=== PATIENT | male | born 1965 | race Hispanic/Latino ===

== ENCOUNTER 2024-09-06 08:53 | Emergency (ER) | payer BC ==
[~2024-09-06] VITALS: Ht 182.9 cm; Wt 89.8 kg
[~2024-09-06 08:53] MED LIST: DICL50TA9 PO
--- NOTE | 2024-09-06 09:31 | ERN ---
General Chief Complaint: Abdominal Pain Stated Complaint: ABDOMINAL PAIN Time Seen by MD: 09:09 Source: patient History of Present Illness Initial Comments Patient is a 58-year-old male with no past medical history had a colonoscopy approximately five months ago and has had left lower quadrant pain since. When asked where the pain is he points to his left lower quadrant and states that it migrates up around to his left back and down into his left groin. The colonoscopy revealed diverticulosis. He has been treating the pain with dicyclomine tramadol Flagyl and ciprofloxacin but the pain is still there and getting worse. He has no other systemic symptoms aside from the left lower quadrant pain. 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 Nothing makes it better. No change in bowel habits or urination. He is eating well. No upper respiratory tract infections no shortness of breath no chest pain. Allergies: Coded Allergies: No Known Drug Allergies (Unverified Allergy, Unknown, 08/25/21) Home Meds Active Scripts Diclofenac Sodium (Diclofenac Sodium) 50 Mg Tablet.dr, 50 MG PO TIDP PRN for SEVERE PAIN (7-10), #20 TAB 0 Refills Prov:ALIYAH OZUNA MD 08/25/21 Past Medical History Past Medical History: No Pertinent History, Diverticulitis, Diverticulosis Medical History Other: Colonoscopy 04/2024 Past Surgical History: None Social History Social History: Other Constitutional: (-) chills, (-) diaphoresis, (-) fever, (-) malaise, (-) [place] kness, (-) other documentation EENTM: (-) eye pain, (-) blurred vision, (-) tearing, (-) double vision, (-) ear pain, (-) ear discharge, (-) nose pain, (-) nose congestion, (-) throat pain, (-) Throat swelling, (-) mouth pain, (-) tooth pain, (-) mouth swelling, (-) other documentation Respiratory: (-) cough, (-) orthopnea, (-) short of breath, (-) stridor, (-) wheezing, (-) other documentation Cardiovascular: (-) chest pain, (-) edema, (-) palpitations, (-) syncope, (-) dyspnea on exertion, (-) other documentation Gastrointestinal/Abdominal: (-) nausea, (-) vomiting, (-) diarrhea, (-) abdominal pain, (-) abdominal distention, (-) constipation, (-) rectal bleeding, (-) dark stool/melena, (-) other documentation Genitourinary: (-) penile discharge, (-) dysuria, (-) frequency, (-) hematuria, (-) pain, (-) other documentation Musculoskeletal: (-) Neck pain, (-) back pain, (-) Flank Pain, (-) joint pain, (-) joint swelling, (-) muscle pain, (-) muscle stiffness, (-) gout, (-) other documentation Skin: (-) laceration, (-) contusion, (-) abrasion, (-) abscess, (-) rash, (-) change in color, (-) change in hair, (-) change in nails, (-) diaphoresis, (-) dryness, (-) other documentation Neuro: (-) altered mental status, (-) headache, (-) syncope, (-) paralysis, (-) numbness, (-) seizure, (-) pre-existing deficit, (-) tremors, (-) weakness, (-) dizziness, (-) slurred speech, (-) vertigo, (-) other documentation Physical Exam General Appearance: (+) no apparent distress Orientation: (+) oriented x 3 Head/Face Trauma: No Eye: bilateral eye normal inspection, bilateral eye PERRL, bilateral eye EOMI Ear, Nose, Throat: (+) hearing grossly normal, (+) normal ENT inspection, (+) moist mucous membraine Neck: (+) normal inspection, (+) supple Respiratory: (+) chest non-tender, (+) lungs clear, (+) well ventilated Heart: (+) regular, (+) no gallop Vascular: (+) no edema, (+) normal peripheral pulse, (+) no JVD Gastrointestinal: (+) soft, (+) non-tender, (+) bowel sound present Genital: (+) normal exam Genital Comment Because patient's pain seemed to radiate down into his left groin I noted patient also had let groin tenderness. I performed a hernia exam on the left side ask him to cough. I felt a slight push on the tip of my finger at the internal inguinal ring. Patient immediately had excruciating pain that was localized to his left lower quadrant and migrated up to his left flank and down into his groin. I asked him if this was the same pain that he had previously and he said yes I asked him if I had created a new source of pain for him and he said no. Back: (+) normal inspection, (+) no CVA tenderness Extremities: (+) normal range of motion, (+) non-tender Neurologic/Psychiatric: (+) normal speech, (+) no motor defecits, (+) rn behavioral health II- XII nml as tested Results Laboratory and Microbiology Lab and Micro Result Laboratory Tests Test 09/06/24 09:14 09/06/24 11:23 White Blood Count 7.1 K/uL (4.8-10.8) Red Blood Count 4.72 MIL/uL (4.50-6.20) Hemoglobin 14.0 g/dL (14.0-18.0) Hematocrit 41.6 % (42-54) L Mean Corpuscular Volume 88.1 fL (79-99) Mean Corpuscular Hemoglobin 29.7 pg (27.0-33.0) Mean Corpuscular Hemoglobin Concent 33.7 g/dL (32.0-36.0) Red Cell Distribution Width 12.9 % (11.0-15.5) Platelet Count 226 K/uL (130-400) Mean Platelet Volume 12.3 fL (7.5-10.5) H Immature Granulocyte % (Auto) 0.3 % (0-1) Neutrophils (%) (Auto) 59.2 % (40.0-77.0) Lymphocytes (%) (Auto) 27.3 % (21.0-51.0) Monocytes (%) (Auto) 6.8 % (3.0-13.0) Eosinophils (%) (Auto) 5.1 % (0.0-8.0) Basophils (%) (Auto) 1.3 % (0.0-5.0) Neutrophils # (Auto) 4.2 K/uL (1.8-7.7) Lymphocytes # (Auto) 1.9 K/uL (1.0-4.8) Monocytes # (Auto) 0.5 K/uL (0.1-1.0) Eosinophils # (Auto) 0.36 K/uL (0.00-0.70) Basophils # (Auto) 0.09 K/uL (0.00-0.20) Absolute Immature Granulocyte (auto 0.02 K/uL (0-1) Nucleated Red Blood Cells 0.0 % (0.0-0.19) Sodium Level 142 mmol/L (136-145) Potassium Level 4.1 mmol/L (3.5-5.1) Chloride Level 106 mmol/L (101-111) Carbon Dioxide Level 26 mmol/L (21-32) Blood Urea Nitrogen 7 mg/dL (7-18) Creatinine 1.1 mg/dL (0.5-1.3) Glomerular Filtration Rate Calc 78 mL/min (>90) Random Glucose 98 mg/dL (70-105) Total Calcium 8.7 mg/dL (8.5-10.1) Urine Color LIGHT-YELLOW (YELLOW) Urine Appearance CLEAR (CLEAR) Urine pH 6.5 (5.0-8.0) Urine Specific [place] 1.013 (1.001-1.031) Urine Protein NEGATIVE mg/dL (NEGATIVE) Urine Glucose (UA) NEGATIVE mg/dL (NEGATIVE) Urine Ketones NEGATIVE mg/dL (NEGATIVE) Urine Occult Blood MODERATE (NEGATIVE) H Urine Nitrate NEGATIVE (NEGATIVE) Urine Bilirubin NEGATIVE mg/dL (NEGATIVE) Urine Urobilinogen 0.2 mg/dL (0.2-1.0) Urine Leukocyte Esterase NEGATIVE Toy/uL Urine RBC 6-10 /HPF (0-1) H Urine WBC 2-5 /HPF (0-1) H Urine Squamous Epithelial Cells RARE /HPF (0-2) Urine Bacteria RARE /HPF (None Seen) MDM It appears the patient has left inguinal pain in addition to his left lower quadrant pain. A hernia exam exacerbated his symptoms. I will get a CBC and a chemistry panel be sure I am not dealing with a diverticulitis flare. I will a lso check his urine. For now I will give him some pain medications and some fluid. I will also do a CT scan with oral and IV contrast of his abdomen. Patient's CBC is normal patient's chemistry panel is normal surprisingly urine showed blood. With no esterase activity. CT scan showed cystitis, no kidney stones, but cystitis. My physical exam is consistent with epididymitis. I will treat the patient with g of Rocephin and a two week course of doxycycline. ED Course Orders Procedure Category Date Status Time Basic Metabolic Panel LAB 09/06/24 Complete 09:31 Cbc With Differential LAB 09/06/24 Complete 09:31 Urinalysis Profile LAB 09/06/24 Complete 09:31 Ketorolac PHA 09/06/24 Complete Tromethamine 30mg/Ml 10:00 Lactated Ringers PHA 09/06/24 Complete 1000ml (Lactated 09:31 Diatr PHA 09/06/24 Complete Meglu/Diatrizoate 09:49 Iohexol (Omnipaque) PHA 09/06/24 Complete 09:49 Ct Abdomen/Pelvis CT 09/06/24 Resulted W/Wo Contras 09:56 Current Medications Medications (Trade) Dose Ordered Sig/Kranthi Route PRN Reason Start Time Stop Time Status Last Admin Dose Admin Diatrizoate Meglum/ Diatrizoate Sod (Gastrografin 66-10 Solution) 30 ml STK-MED ONCE .ROUTE 09/06/24 09:49 09/06/24 09:50 DC Iohexol (Omnipaque) 75 ml STK-MED ONCE IV 09/06/24 09:49 09/06/24 09:50 DC Ketorolac Tromethamine (toRADol) 30 mg ONCE ONCE IVP 09/06/24 10:00 09/06/24 10:01 DC 09/06/24 09:51 Lactated Ringer's (Lactated Ringers 1000ml) 1,000 ml BOLUS STAT IV 09/06/24 09:31 09/06/24 09:36 DC 09/06/24 09:51 Vital Signs Date Time Temp Pulse Resp B/P (MAP) Pulse Ox O2 Delivery O2 Flow Rate FiO2 09/06/24 12:40 97.9 63 18 148/84 98 Room Air* 0 21 09/06/24 11:40 97.5 56 16 157/95 98 Room Air* 0 21 09/06/24 08:55 98.2 70 16 142/89 99 Room Air* 0 21 09/06/24 08:55 98.2 70 16 142/89 99 Room Air DX & DISP Disposition: Discharge Departure Impression: Primary Impression: Cystitis Additional Impression: Epididymitis with no abscess Condition: Stable Scripts Doxycycline Hyclate (Doxycycline Hyclate) 100 Mg Capsule 1 CAP PO BID for 14 Days, #28 CAP 0 Refills Prov: FREDRICK PENNINGTON MD 09/06/24 Additional Instructions: If your symptoms do not improve after taking your course of antibiotics please see your primary care physician regarding your pain. You may still have an inguinal hernia or a musculoskeletal injury. For now you can treat the pain with Tylenol or Motrin. Referrals: SELF,REFERRAL (PCP) FREDRICK PENNINGTON MD September 06, 2024 09:31
--- NOTE | 2024-09-06 09:39 | NUR ---
PENDING GFR RESULTS, IV SITE, & CONSENT FOR CT EXAM.
[2024-09-06 09:40] LABS: BASOPHILS # (AUTO) 0.09 K/uL (0.00-0.20); BASOPHILS % (AUTO) 1.3 % (0.0-5.0); EOSINOPHILS # (AUTO) 0.36 K/uL (0.00-0.70); EOSINOPHILS % (AUTO) 5.1 % (0.0-8.0); HEMATOCRIT 41.6 % (42-54); IMMATURE GRANULOCYTE ABSOLUTE 0.02 K/uL (0-1); LYMPHOCYTES # (AUTO) 1.9 K/uL (1.0-4.8); LYMPHOCYTES % (AUTO) 27.3 % (21.0-51.0); MEAN CORPUSCULAR HEMOGLOBIN 29.7 pg (27.0-33.0); MEAN CORPUSCULAR HGB CONC 33.7 g/dL (32.0-36.0); MEAN CORPUSCULAR VOLUME 88.1 fL (79-99); MONOCYTES # (AUTO) 0.5 K/uL (0.1-1.0); MONOCYTES % (AUTO) 6.8 % (3.0-13.0); NEUTROPHILS # (AUTO) 4.2 K/uL (1.8-7.7); NEUTROPHILS % (AUTO) 59.2 % (40.0-77.0); PLATELET COUNT (AUTO) 226 K/uL (130-400); RED BLOOD CELL COUNT(AUTO) 4.72 MIL/uL (4.50-6.20); RED CELL DISTRIBUTION WIDTH 12.9 % (11.0-15.5); WHITE BLOOD COUNT (AUTO) 7.1 K/uL (4.8-10.8)
[2024-09-06 09:48] LABS: CREATININE 1.1 mg/dL (0.5-1.3); POTASSIUM 4.1 mmol/L (3.5-5.1)
[2024-09-06] MEDS ORDERED: DIATR MEGLU/DIATRIZOATE SODIUM 30 ML BOTTLE ONE (09:49)
[2024-09-06] MEDS ORDERED: IOHEXOL-350 75 ML VIAL IV ONE (09:49)
[2024-09-06] MEDS: ketOROlac 30MG VIAL (30MG/ML) IVP ONE (09:51)
[2024-09-06] MEDS: LACTATED RINGERS 1000ML IV STA (09:51)
--- NOTE | 2024-09-06 09:51 | NUR ---
PATIENT PREPPING WITH ORAL CONTRAST FOR CT EXAM.
[2024-09-06 11:44] LABS: APPEARANCE,URINE CLEAR (CLEAR); BILIRUBIN,URINE NEGATIVE (NEGATIVE); COLOR,URINE LIGHT-YELLOW (YELLOW); GLUCOSE, URINE (UA) NEGATIVE (NEGATIVE); KETONES,URINE NEGATIVE (NEGATIVE); LEUKOCYTE ESTERASE ,URINE NEGATIVE Leu/uL (NEGATIVE); NITRATE,URINE NEGATIVE (NEGATIVE); OCCULT BLOOD,URINE MODERATE (NEGATIVE); PH,URINE 6.5 (5.0-8.0); PROTEIN,URINE NEGATIVE (NEGATIVE); UROBILINOGEN,URINE 0.2 mg/dL (0.2-1.0)
[2024-09-06 11:46] LABS: ADD UA MICROSCOPIC YES
[2024-09-06 11:50] LABS: BACTERIA,URINE RARE /HPF (None Seen); MUCUS,URINE RARE LPF (None Seen); SQUAMOUS EPITHELIAL CELL,UR RARE /HPF (0-2)
--- NOTE | 2024-09-06 12:12 | HMCIMG ---
CT ABDOMEN WITHOUT AND WITH CONTRAST. CT PELVIS WITHOUT AND WITH CONTRAST INDICATION: Left lower abdominal pain TECHNIQUE: Routine transaxial images at 5 mm slice thickness were obtained prior to the administration of contrast material through the abdomen only, and after the intravenous infusion of 75 mL of Omnipaque 350 through the abdomen and pelvis without adverse effects. Delayed images of the abdomen and pelvis were also obtained. Coronal and sagittal reformatted imaging acquired for interpretation. Oral contrast administered. CT was performed with one or more of the following dose reduction techniques: Automated exposure control, adjustment of the mA and/or kV according to patient size, or use of iterative reconstruction technique. COMPARISON: None FINDINGS: ABDOMEN: Heart size is normal. Visible lung bases are clear. The liver is normal in size and smooth in contour without lesions or biliary duct dilation. The spleen is normal in size without lesions. The gallbladder appears normal. The pancreas appears normal without pancreatic duct dilation. The adrenal glands appear normal. Both kidneys appear unremarkable. Cortical nephrograms are symmetric and normal in appearance bilaterally. No significant abdominal, retrocrural or retroperitoneal adenopathy noted.No evidence for intra-abdominal free air or organized fluid collection. No aortic aneurysmal dilation or dissection identified. PELVIS: No evidence for free air or organized pelvic fluid collection. No significant pelvic adenopathy detected. Several diverticula along the distal colon without any surrounding inflammatory fat stranding. Terminal ileum appears unremarkable. The appendix appears normal. The urinary bladder appears unremarkable. Visible osseous structures are intact. IMPRESSION: Distal colonic diverticulosis without diverticulitis or colitis.
[2024-09-06 12:40] VITALS: BP 148/84; PULSE 63; RESP 18; TEMP 97.8; O2SAT 98
[2024-09-06] MEDS ORDERED: DOXY100C5 PO (13:13)
[2024-09-06] MEDS: CEFTRIAXONE 2GM VIAL IVPB ONE (13:33)
== END 2024-09-06 13:46 | disposition home or self-care (01) ==
LOC: EDH 08:53
DX: N30.90 Cystitis, unspecified without hematuria (principal); N45.1 Epididymitis; Z79.899 Other long term (current) drug therapy
CPT/HCPCS: 99284; 74178; 96374; 96361; 96375; 80048; 85025; 81001; 36415; J1885; J7120; Q9963; J0696; Q9967